=== PATIENT | male | born 1975 | race Caucasian/White ===

== ENCOUNTER 2020-11-07 17:40 | Emergency (ER) | payer BC ==
[2020-11-07 17:45] VITALS: BP 167/106; PULSE 110; RESP 18; TEMP 98.2
[2020-11-07] MEDS ORDERED: LIDOCAINE 1% INJ 10MG/ML (20 ML MDV) SQ STA (18:01)
[2020-11-07] MEDS ORDERED: DIPH,PERTUS(ACELL)TETVAC-LF 0.5 ML VIAL IM ONE (18:02)
--- NOTE | 2020-11-07 18:36 | XR ---
EXAMINATION TYPE: XR finger LT DATE OF EXAM: 11/07/2020 COMPARISON: NONE HISTORY: Laceration TECHNIQUE: 3 views FINDINGS: I see no fracture nor dislocation. There is some spurring at the first carpometacarpal join t. There is no evidence of a foreign body. IMPRESSION: Osteoarthritis at the base of the thumb. No fracture seen.
[2020-11-07] MEDS ORDERED: BACITRACIN OINT 1 EACH PACKET TOPICAL ONE (19:24)
[2020-11-07] MEDS ORDERED: CEPHALEXIN 500MG STARTER PACK 4 CAP BTL PO STA (19:33)
--- NOTE | 2020-11-07 19:36 | ED ---
General Adult HPI - General Chief complaint: Wound/Laceration Stated complaint: L Finger Lac Time Seen by Provider: 11/07/20 18:01 Source: patient, RN notes reviewed Mode of arrival: ambulatory Limitations: no limitations - History of Present Illness Initial comments: 45 year old male presents to the emergency department for a chief of laceration to left thumb. Patient has laceration noted over the IP joint of the left thumb. Patient states he was using a sharp and pocket knife to cut a branch and he cut his thumb instead. Denies any difficulty moving the thumb. Patient is unsure of his tetanus is up-to-date. Denies any other injuries. Denies any loss of sensation in the left thumb.Patient has no other complaints at this time including shortness of breath, chest pain, abdominal pain, nausea or vomiting, headache, or visual changes. - Related Data Home Medications Medication Instructions Recorded Confirmed Dextroamphetamine/Amphetamine 20 mg PO DAILY 04/26/16 04/26/16 [Adderall] Sertraline [Zoloft] 50 mg PO DAILY 04/26/16 04/26/16 Previous Rx's Medication Instructions Recorded Hydrocodone/Acetaminophen [[place] 1 each PO Q6HR PRN #20 tab 04/26/16 5-325] Ibuprofen [Motrin] 600 mg PO Q8HR PRN #20 tab 04/26/16 Cephalexin [Keflex] 500 mg PO Q6HR 7 Days #28 cap 11/07/20 Allergies Allergy/AdvReac Type Severity Reaction Status Date / Time No Known Allergies Allergy Verified 11/07/20 17:45 Review of Systems ROS Statement: Those systems with pertinent positive or pertinent negative responses have been documented in the HPI. ROS Other: All systems not noted in ROS Statement are negative. Past Medical History Past Medical History: Hypertension History of Any Multi-Drug Resistant Organisms: None Reported Past Surgical History: No Surgical Hx Reported Past Psychological History: No Psychological Hx Reported Smoking Status: Current every day smoker Past Alcohol Use History: Occasional Past Drug Use History: None Reported General Exam Limitations: no limitations General appearance: alert Head exam: Present: atraumatic, normocephalic, normal inspection Eye exam: Present: normal appearance, PERRL, EOMI. Absent: scleral icterus, conjunctival injection, periorbital swelling ENT exam: Present: normal exam, mucous membranes moist Neck exam: Present: normal inspection, full ROM. Absent: tenderness, meningismus, lymphadenopathy Respiratory exam: Present: normal lung sounds bilaterally. Absent: respiratory distress, wheezes, rales, rhonchi, stridor Cardiovascular Exam: Present: regular rate, normal rhythm, normal heart sounds. Absent: systolic murmur, diastolic murmur, rubs, gallop, clicks Extremities exam: Present: full ROM (Full range motion of the left thumb including the MCP and IP joints.), normal capillary refill (Capillary refill less than 2 seconds in left thumb. Radial pulses 2+ and left upper extremity), other (Patient does have a 3 cm laceration over the dorsum of the left IP joint involving tendon). Absent: tenderness, pedal edema, joint swelling, calf tenderness Course Vital Signs 11/07/20 17:42 Temperature 98.2 F Pulse Rate 110 H Respiratory 18 Rate Blood Pressure 167/106 O2 Sat by Pulse 97 Oximetry Procedures - Laceration Laceration #1 Consent Obtained: verbal consent Indication: laceration Site: hand Size (cm): 3 Description: linear Depth: involves tendon Anesthetic Used: lidocaine 1% Anesthesia Technique: local infiltration Amount (mls): 3 Pre-repair: wound explored, irrigated extensively (With saline pressure irrigation) Type of Sutures: nylon Size of Sutures: 4-0 Number of Sutures: 6 Technique: simple, interrupted Patient Tolerated Procedure: well, no complications Medical Decision Making - Medical Decision Making Wound was cleaned thoroughly. I do suspect tendon rupture. X-ray revealed no fracture seen. I did apply sutures and the wound is now approximated. Patient will be started on antibiotics. He will be given splint and orthopedic follow- up. He will return here for any worsening symptoms. [facility] is [facility], Dr. Lora is on-call. Discussed case with Dr Garcia Disposition Clinical Impression: Laceration, Tendon laceration Disposition: HOME SELF-CARE Condition: Good Instructions (If sedation given, give patient instructions): Care For Your Stitches (ED), Laceration (ED) Additional Instructions: Please take antibiotic as directed. Please use splint. Follow-up with orthopedics. Return to the emergency room for any worsening symptoms such as signs of infection. Prescriptions: Cephalexin [Keflex] 500 mg PO Q6HR 7 Days #28 cap Is patient prescribed a controlled substance at d/c from ED?: No Referrals: Levi Hightower MD [Primary Care Provider] - 1-2 days Marc Lora DO [Doctor of Osteopathic Medicine] - 1-2 days Time of Disposition: 19:34
== END 2020-11-07 19:49 | disposition home or self-care (01) ==
LOC: EC 17:40
DX: S56.322A Laceration of extensor or abductor muscles, fascia and tendons of left thumb at forearm level, initial encounter (principal); Z23 Encounter for immunization; F17.200 Nicotine dependence, unspecified, uncomplicated; Z79.899 Other long term (current) drug therapy; W26.0XXA Contact with knife, initial encounter
CPT/HCPCS: 73140; 90715; 99283; 90471; 12002; J2001

== ENCOUNTER 2022-05-30 21:32 | Emergency (ER) | payer BC ==
[2022-05-30 21:49] VITALS: BP 162/90; PULSE 89; RESP 19; TEMP 98.2
[2022-05-30 22:08] LABS: Basophils # (A) 0.1 k/uL (0-0.2); Basophils % (A) 1 %; Eosinophils # (A) 0.2 k/uL (0-0.7); Eosinophils % (A) 2 %; HCT 48.7 % (39.0-53.0); HGB 15.9 gm/dL (13.0-17.5); Lymphocytes # (A) 3.4 k/uL (1.0-4.8); Lymphocytes % (A) 27 %; MCH 31.3 pg (25.0-35.0); MCHC 32.6 g/dL (31.0-37.0); MCV 95.9 fL (80.0-100.0); Mean Platelet Volume 8.5; Monocytes # (A) 0.7 k/uL (0-1.0); Monocytes % (A) 5 %; Neutrophils # (A) 8.2 k/uL (1.3-7.7); Neutrophils % (A) 64 %; Platelet Count 286 k/uL (150-450); RBC 5.07 m/uL (4.30-5.90); RDW 12.2 % (11.5-15.5); WBC 12.8 k/uL (3.8-10.6)
[2022-05-30 22:54] LABS: Albumin 4.2 g/dL (3.5-5.0); Calcium 8.9 mg/dL (8.4-10.2); Potassium 3.9 mmol/L (3.5-5.1); Total Bilirubin 0.3 mg/dL (0.2-1.3); Total Protein 6.7 g/dL (6.3-8.2)
--- NOTE | 2022-05-30 23:04 | ED ---
Abdominal Pain HPI - General Chief Complaint: Abdominal Pain Stated Complaint: High BP,L sided abd pain Time Seen by Provider: 05/30/22 22:34 Source: patient Mode of arrival: ambulatory - History of Present Illness Initial Comments: this patient is a 47-year-old man with left upper quadrant pain that was initially noted approximately 2 weeks ago, is intermittent. He describes it as sharp, it has become more constant and is moderately severe. He does occasionally radiate towards the left groin. Area no associated symptoms. -: days(s) Location: LUQ Migration to: no migration Severity: moderate Quality: sharp Consistency: intermittent Improves With: nothing Worsens With: nothing Associated Symptoms: denies other symptoms - Related Data Home Medications Medication Instructions Recorded Confirmed Dextroamphetamine/Amphetamine 20 mg PO DAILY 04/26/16 04/26/16 [Adderall] Sertraline [Zoloft] 50 mg PO DAILY 04/26/16 04/26/16 Previous Rx's Medication Instructions Recorded Hydrocodone/Acetaminophen [[place] 1 each PO Q6HR PRN #20 tab 04/26/16 5-325] Ibuprofen [Motrin] 600 mg PO Q8HR PRN #20 tab 04/26/16 Cephalexin [Keflex] 500 mg PO Q6HR 7 Days #28 cap 11/07/20 HYDROcodone/APAP 5-325MG [[place] 1 tab PO Q4HR PRN 3 Days #18 tab 05/31/22 5-325] Ondansetron Odt [Zofran ODT] 4 mg PO Q8HR PRN #10 tab 05/31/22 Tamsulosin [Flomax] 0.4 mg PO DAILY #14 cap 05/31/22 Allergies Allergy/AdvReac Type Severity Reaction Status Date / Time No Known Allergies Allergy Verified 05/30/22 21:49 Review of Systems ROS Statement: Those systems with pertinent positive or pertinent negative responses have been documented in the HPI. ROS Other: All systems not noted in ROS Statement are negative. Constitutional: Denies: fever, chills Respiratory: Denies: cough, dyspnea Cardiovascular: Denies: chest pain, palpitations, edema Gastrointestinal: Reports: abdominal pain. Denies: nausea, vomiting, diarrhea, constipation Genitourinary: Denies: dysuria, frequency, hematuria, discharge, testicular pain, testicular mass Musculoskeletal: Denies: back pain Skin: Denies: rash Neurological: Denies: headache, weakness, numbness Past Medical History Past Medical History: Hypertension History of Any Multi-Drug Resistant Organisms: None Reported Past Surgical History: No Surgical Hx Reported Past Psychological History: No Psychological Hx Reported Smoking Status: Current every day smoker Past Alcohol Use History: Occasional Past Drug Use History: None Reported General Exam General appearance: alert, in no apparent distress Head exam: Present: atraumatic, normocephalic Eye exam: Present: normal appearance. Absent: scleral icterus, conjunctival injection Neck exam: Present: normal inspection Respiratory exam: Present: normal lung sounds bilaterally. Absent: respiratory distress, wheezes, rales, rhonchi, stridor Cardiovascular Exam: Present: regular rate, normal rhythm, normal heart sounds. Absent: systolic murmur, diastolic murmur, rubs, gallop GI/Abdominal exam: Present: soft. Absent: distended, tenderness, guarding, rebound, rigid, mass Extremities exam: Present: normal inspection, normal capillary refill. Absent: pedal edema, calf tenderness Back exam: Present: normal inspection. Absent: CVA tenderness (R), CVA tende rness (L) Neurological exam: Present: alert Skin exam: Present: warm, dry, intact, normal color. Absent: rash Course Vital Signs 05/30/22 21:46 Temperature 98.2 F Pulse Rate 89 Respiratory 19 Rate Blood Pressure 162/90 O2 Sat by Pulse 99 Oximetry Medical Decision Making - Lab Data Result diagrams: 05/30/22 21:57 05/30/22 21:57 Lab Results 05/30/22 05/30/22 05/30/22 Range/Units 21:57 21:57 21:57 WBC 12.8 H (3.8-10.6) k/uL RBC 5.07 (4.30-5.90) m/uL Hgb 15.9 (13.0-17.5) gm/dL Hct 48.7 (39.0-53.0) % MCV 95.9 (80.0-100.0) fL MCH 31.3 (25.0-35.0) pg MCHC 32.6 (31.0-37.0) g/dL RDW 12.2 (11.5-15.5) % Plt Count 286 (150-450) k/uL MPV 8.5 Neutrophils % 64 % Lymphocytes % 27 % Monocytes % 5 % Eosinophils % 2 % Basophils % 1 % Neutrophils # 8.2 H (1.3-7.7) k/uL Lymphocytes # 3.4 (1.0-4.8) k/uL Monocytes # 0.7 (0-1.0) k/uL Eosinophils # 0.2 (0-0.7) k/uL Basophils # 0.1 (0-0.2) k/uL Sodium 137 (137-145) mmol/L Potassium 3.9 (3.5-5.1) mmol/L Chloride 105 (98-107) mmol/L Carbon Dioxide 22 (22-30) mmol/L Anion Gap 10 mmol/L BUN 27 H (9-20) mg/dL Creatinine 1.53 H (0.66-1.25) mg/dL Est GFR (CKD-EPI)AfAm 61 (>60 ml/min/1.73 sqM) Est GFR (CKD-EPI)NonAf 53 (>60 ml/min/1.73 sqM) Glucose 142 H (74-99) mg/dL Calcium 8.9 (8.4-10.2) mg/dL Total Bilirubin 0.3 (0.2-1.3) mg/dL AST 24 (17-59) U/L ALT 21 (4-49) U/L Alkaline Phosphatase 104 (38-126) U/L Troponin I <0.012 (0.000-0.034) ng/mL Total Protein 6.7 (6.3-8.2) g/dL Albumin 4.2 (3.5-5.0) g/dL Amylase 58 (30-110) U/L Lipase 99 (23-300) U/L Urine Color Urine Appearance (Clear) Urine pH (5.0-8.0) Ur Specific [place] (1.001-1.035) Urine Protein (Negative) Urine Glucose (UA) (Negative) Urine Ketones (Negative) Urine Blood (Negative) Urine Nitrite (Negative) Urine Bilirubin (Negative) Urine Urobilinogen (<2.0) mg/dL Ur Leukocyte Esterase (Negative) Urine RBC (0-5) /hpf Urine WBC (0-5) /hpf Ur Squamous Epith Cells (0-4) /hpf Urine Mucus (None) /hpf 07/22/22 Range/Units 23:14 WBC (3.8-10.6) k/uL RBC (4.30-5.90) m/uL Hgb (13.0-17.5) gm/dL Hct (39.0-53.0) % MCV (80.0-100.0) fL MCH (25.0-35.0) pg MCHC (31.0-37.0) g/dL RDW (11.5-15.5) % Plt Count (150-450) k/uL MPV Neutrophils % % Lymphocytes % % Monocytes % % Eosinophils % % Basophils % % Neutrophils # (1.3-7.7) k/uL Lymphocytes # (1.0-4.8) k/uL Monocytes # (0-1.0) k/uL Eosinophils # (0-0.7) k/uL Basophils # (0-0.2) k/uL Sodium (137-145) mmol/L Potassium (3.5-5.1) mmol/L Chloride (98-107) mmol/L Carbon Dioxide (22-30) mmol/L Anion Gap mmol/L BUN (9-20) mg/dL Creatinine (0.66-1.25) mg/dL Est GFR (CKD-EPI)AfAm (>60 ml/min/1.73 sqM) Est GFR (CKD-EPI)NonAf (>60 ml/min/1.73 sqM) Glucose (74-99) mg/dL Calcium (8.4-10.2) mg/dL Total Bilirubin (0.2-1.3) mg/dL AST (17-59) U/L ALT (4-49) U/L Alkaline Phosphatase (38-126) U/L Troponin I (0.000-0.034) ng/mL Total Protein (6.3-8.2) g/dL Albumin (3.5-5.0) g/dL Amylase (30-110) U/L Lipase (23-300) U/L Urine Color Yellow Urine Appearance Clear (Clear) Urine pH 6.0 (5.0-8.0) Ur Specific [place] 1.027 (1.001-1.035) Urine Protein Negative (Negative) Urine Glucose (UA) Negative (Negative) Urine Ketones Negative (Negative) Urine Blood Trace H (Negative) Urine Nitrite Negative (Negative) Urine Bilirubin Negative (Negative) Urine Urobilinogen <2.0 (<2.0) mg/dL Ur Leukocyte Esterase Negative (Negative) Urine RBC 9 H (0-5) /hpf Urine WBC 1 (0-5) /hpf Ur Squamous Epith Cells <1 (0-4) /hpf Urine Mucus Rare H (None) /hpf - EKG Data -: EKG Interpreted by Me EKG shows normal: sinus rhythm, axis (normal), intervals (normal), QRS complexes (normal), ST-T waves (normal) Rate: normal (at 82 bpm) Disposition Clinical Impression: Kidney stone on left side Disposition: HOME SELF-CARE Condition: Good Instructions (If sedation given, give patient instructions): Kidney Stones (ED) Prescriptions: Tamsulosin [Flomax] 0.4 mg PO DAILY #14 cap HYDROcodone/APAP 5-325MG [[place] 5-325] 1 tab PO Q4HR PRN 3 Days #18 tab PRN Reason: Pain Ondansetron Odt [Zofran ODT] 4 mg PO Q8HR PRN #10 tab PRN Reason: Nausea Is patient prescribed a controlled substance at d/c from ED?: Yes When asked, does pt state using other controlled substances?: No If prescribed controlled substance>3 days was MAPS reviewed?: Prescribed <3 Days If opioid is for acute pain is fill amount 7 days or less?: Yes If Rx opioid, was Start Talking consent form obtained?: Yes Referrals: Levi Hightower MD [Primary Care Provider] - 1-2 days Tony Villalobos MD [STAFF PHYSICIAN] - 1-2 days
[2022-05-30 23:26] LABS: Appearance,Urine Clear (Clear); Bilirubin,Urine Negative (Negative); Blood,Urine Trace (Negative); Color,Urine Yellow; Glucose,Urine (UA) Negative (Negative); Ketones,Urine Negative (Negative); Leukocyte Esterase,Urine Negative (Negative); Mucus,Urine Rare /hpf; Nitrite,Urine Negative (Negative); Protein,Urine Negative (Negative); RBC,Urine 9 /hpf (0-5); Specific Gravity,Urine 1.027 (1.001-1.035); Squamous Epithelial Cell,Urine <1 /hpf (0-4); Urobilinogen,Urine <2.0 mg/dL (<2.0); WBC,Urine 1 /hpf (0-5)
[2022-05-31] MEDS ORDERED: MAG HYDROX/AL HYDROX/SIMETH 30 ML, HYOSCYAMINE ELIXIR 10 ML, LIDOCAINE VISCOUS 2% 10 ML PO STA ×3 (00:12)
[2022-05-31] MEDS ORDERED: KETOROLAC 15 MG/ML 1 ML VIAL IVP STA (00:13)
[2022-05-31] MEDS ORDERED: MORPHINE SULFATE 4 MG/ML SYRINGE IV STA (00:14)
[2022-05-31] MEDS ORDERED: HYDROmorphone 0.5 MG/0.5 ML SYRINGE IVP STA (00:59)
--- NOTE | 2022-05-31 01:29 | CT ---
EXAMINATION TYPE: CT abdomen pelvis wo con DATE OF EXAM: 05/31/2022 COMPARISON: 04/26/2016 HISTORY: LUQ PAIN X DAYS CT DLP: 3 views mGycm Automated exposure control for dose reduction was used. Images obtained from the diaphragm to the floor the pelvis with no contrast. There is mild subsegmental atelectasis right lung base. Heart size is normal. No pericardial effusion . No pleural effusion. Liver spleen and stomach pancreas and gallbladder appear intact. The bowel gas are not dilated. There is no adrenal mass. Kidneys of normal size. There are multiple bilateral renal calculi up to 4 mm. There is left-sided hydronephrosis and hydroureter. There is obstructing 5 mm calculus in the mid left ureter. The bladder distends smoothly. No inguinal hernia. No pelvic mass. No free fluid in the pelvis. There are some sigmoid diverticula. No diverticulitis. Appendix is posterior and appears nor mal. There is no mesenteric edema. No ascites or free air. No sign of a bowel obstruction. Lumbar vertebrae have normal alignment. No compression fracture. Bony pelvis is intact. The hip joint s are intact. Sacroiliac joints are intact. IMPRESSION: Obstructing calculus mid left ureter with left-sided hydronephrosis and hydroureter. Multiple bilater al renal calculi. Calculi are essentially all new compared to old exam. Normal appendix.
[2022-05-31] MEDS ORDERED: TAMSULOSIN 0.4 MG CAP.ER.24H PO STA (01:47)
== END 2022-05-31 01:56 | disposition home or self-care (01) ==
LOC: EC 21:32
DX: N13.2 Hydronephrosis with renal and ureteral calculous obstruction (principal); I10 Essential (primary) hypertension; F17.200 Nicotine dependence, unspecified, uncomplicated
CPT/HCPCS: 36415; 93005; 80053; 82150; 83690; 84484; 85025; 81001; 74176; 99284; 96374; 96375; J2270; J1885; J1170

== ENCOUNTER → 2022-06-05 | Outpatient (CLI) | payer BC ==
--- NOTE | 2022-06-05 15:17 | XR ---
EXAMINATION TYPE: XR KUB DATE OF EXAM: 06/05/2022 Comparison: CT 05/31/2022 Clinical History: 47-year-old male N20.1 Calculus of ureter Findings: Nonobstructive bowel gas pattern. Left-sided pelvic phleboliths. 6 mm calcification now along the exp ected region of the mid left ureter. Additional faint left renal calculi appear to measure 6 mm and 4 mm. Mild stool burden. Impression: A 6 mm mid left ureteral stone. Additional nonobstructive left renal calculi.
== END | disposition home or self-care (01) ==
LOC: RADXRMAIN 11:27
PROVIDERS: ATTEND Urology
DX: N20.2 Calculus of kidney with calculus of ureter (principal)
CPT/HCPCS: 74018

== ENCOUNTER → 2022-06-17 | Outpatient (CLI) | payer BC ==
--- NOTE | 2022-06-17 10:52 | XR ---
EXAMINATION TYPE: XR KUB DATE OF EXAM: 06/17/2022 HISTORY: Pain Comparison: 06/05/22 Single KUB is submitted for interpretation. Findings: Right renal calculi: None Visualized. Right ureteral calculi: None Visualized. Left renal calculi: 6.5 mm calculus lower pole left kidney. 3 mm calculus mid pole left kidney. Left ureteral calculi: Previously noted calculus left ureter is not visualized with certainty. Pelvic calcifications: None Visualized. Bowel gas pattern is unremarkable. No free air. No mass effects. IMPRESSION: 1. As above
== END | disposition home or self-care (01) ==
LOC: RADXRMAIN 10:32
PROVIDERS: ATTEND Urology
DX: N20.0 Calculus of kidney (principal)
CPT/HCPCS: 74018

== ENCOUNTER → 2022-07-21 | Outpatient (CLI) | payer BC ==
--- NOTE | 2022-07-21 08:40 | XR ---
EXAMINATION TYPE: XR KUB DATE OF EXAM: 07/21/2022 HISTORY: Pain Comparison: None.Single KUB is submitted for interpretation. Findings: Right renal calculi: None Visualized. Right ureteral calculi: None Visualized. Left renal calculi: Previously demonstrated calculi within the lower pole of the left kidney are not definitively visualized on today's exam. Left ureteral calculi: None Visualized. Pelvic calcifications: Stable bilateral pelvic phleboliths. Bowel gas pattern is unremarkable. No free air. No mass effects. IMPRESSION: No definitive renal or ureteral calculi identified.
== END ==
LOC: RADXRMAIN 08:15
PROVIDERS: ATTEND Urology
DX: N20.0 Calculus of kidney (principal)
CPT/HCPCS: 74018

== ENCOUNTER → 2023-01-30 | Day surgery (SDC) | payer BC ==
[~2023-01-30] MED LIST: ALPRAZolam 0.25 MG TAB PO PRN; ALPRAZolam 0.5 MG TAB PO PRN; ASPIRIN 325 MG TAB PO STA; ATORVASTATIN 80 MG TAB PO STA; HEPARIN SODIUM 1,000 UN/ML (10ML VL) IV ONE; HEPARIN SODIUM 1,000 UN/ML (10ML VL) ONE; HEPARIN SODIUM,PORCINE 10,000 UNIT in SODIUM CHLORIDE 0.9% 1,000 ML IRRIGATION PRN; HEPARIN SODIUM,PORCINE 2,500 UNIT in SODIUM CHLORIDE 0.9% 250 ML IRRIGATION PRN; IOPAMIDOL-370 125ML BTL INJ ONE; LIDOCAINE 1% INJ 10MG/ML (5 ML VIAL-PF) SQ ONE; MIDAZOLAM 2 MG/2 ML VIAL IV ONE; NITROGLYCERIN SL TABS 0.4 MG TAB SUBLINGUAL PRN; SODIUM CHLORIDE 0.9% 1,000 ML in EMPTY BAG 1 BAG IV SCH; VERAPAMIL 2.5 MG/ML 2 ML AMP ONE; VERAPAMIL SYRINGE (5 MG/10 ML) INTRAARTER ONE; fentaNYL (PF) 50 MCG/ML 2 ML AMP IV ONE; fentaNYL (PF) 50 MCG/ML 2 ML AMP ONE
[2023-01-30 10:33] VITALS: RESP 18; TEMP 97.5
[2023-01-30 10:47] LABS: Basophils % (A) 0 %; Eosinophils # (A) 0.2 k/uL (0-0.7); Eosinophils % (A) 1 %; HCT 50.2 % (39.0-53.0); HGB 16.7 gm/dL (13.0-17.5); Lymphocytes # (A) 2.9 k/uL (1.0-4.8); Lymphocytes % (A) 22 %; MCH 31.2 pg (25.0-35.0); MCHC 33.2 g/dL (31.0-37.0); Mean Platelet Volume 8.6; Monocytes # (A) 0.5 k/uL (0-1.0); Monocytes % (A) 4 %; Neutrophils # (A) 9.5 k/uL (1.3-7.7); Neutrophils % (A) 71 %; Platelet Count 264 k/uL (150-450); RBC 5.34 m/uL (4.30-5.90); RDW 12.4 % (11.5-15.5); WBC 13.3 k/uL (3.8-10.6)
[2023-01-30 10:55] LABS: African American GFR (CKD) >90 (>60 ml/min/1.73 sqM); Anion Gap 10 mmol/L; Blood Urea Nitrogen 20 mg/dL (9-20); Calcium 8.8 mg/dL (8.4-10.2); Carbon Dioxide 22 mmol/L (22-30); Chloride 105 mmol/L (98-107); Glucose 102 mg/dL (74-99); Non-African American GFR(CKD) >90 (>60 ml/min/1.73 sqM); Potassium 4.2 mmol/L (3.5-5.1); Sodium 137 mmol/L (137-145)
--- NOTE | 2023-01-30 12:56 | P.CARDCATH ---
Description of Procedure: PROCEDURES PERFORMED: Left heart catheterization, bilateral coronary angiography, left ventriculogram INDICATION: Chest pain worse with exertion concerning for unstable angina CONSENT:I have discussed the risks, benefits and alternative therapies for the above-mentioned procedure and for both sedation/analgesia as well as necessary blood product administration, if indicated, as they pertain to this patient. The patient has indicated understanding and acceptance of the risks and procedures discussed. PROCEDURE: After the risks, benefits and alternatives of the above mentioned procedure explained in detail with the patient, informed consent was obtained. Patient was taken to the catheterization lab and prepped and draped in usual fashion. 1% lidocaine was used to anesthetize the right radial artery. A 6- Indian sheath was placed in the right radial artery using modified Seldinger technique. Left coronary angiography was performed with a 5-Indian JL 3.5 catheter and right coronary angiography was performed with a 5-Indian JR5 catheter in various views. A 5-Indian FR5 catheter was inserted into the left ventricle and pressure measurements were obtained. A left ventriculogram was performed with a 6-Indian pigtail catheter in the ROMERO projection with power injection. The right radial sheath was removed and a TR band was placed with hemostasis achieved. The patient tolerated the procedure well. Patient was transported back to the post catheterization holding area in stable condition. Conscious Sedation: Patient was monitored under the direct supervision of vision of myself for conscious sedation using Versed and fentanyl for a total duration of 19 minutes HEMODYNAMICS: Aorta: 131/84 LV: 131/10, LVEDP 20 SELECTIVE CORONARY ARTERIOGRAPHY: LEFT MAIN: The left main is a large caliber vessel which bifurcates into the LAD and circumflex. There is no significant stenosis. LEFT ANTERIOR DESCENDING CORONARY ARTERY: LAD is a large caliber vessel which wraps around to the apex. There is no significant stenosis. LEFT CIRCUMFLEX CORONARY ARTERY: Left circumflex is a small to moderate caliber vessel without significant stenosis. RIGHT CORONARY ARTERY: The right coronary artery is a large caliber vessel which gives off a PDA and PLV branch and is the dominant vessel. There is mild 10-20% mid RCA stenosis and otherwise normal. FINAL IMPRESSION: 1. Relatively normal coronary arteries as described above other than 10-20% mid RCA stenosis 2. Mildly elevated left sided filling pressures 3. Left ventricular ejection fraction 60% PLAN: 1. Aggressive risk factor modification per most recent ACC/AHA guidelines. 2. Follow-up in the office in 1-2 weeks.
[2023-01-30 15:21] VITALS: BP 133/63; PULSE 68
== END ==
LOC: CATHCVL 10:09
PROVIDERS: ATTEND Internal Medicine
DX: I25.10 Atherosclerotic heart disease of native coronary artery without angina pectoris (principal)
CPT/HCPCS: 93458; 80048; 85025; C1769; C1894; J2250; J2001; J3010; J1644; Q9967

== ENCOUNTER → 2023-06-17 | Outpatient (CLI) | payer BC ==
--- NOTE | 2023-06-17 09:11 | XR ---
EXAMINATION TYPE: XR KUB DATE OF EXAM: 06/17/2023 HISTORY: Pain Comparison: CT 05/31/2022. Single KUB is submitted for interpretation. Findings: Right renal calculi: 5 mm calculus lower pole right kidney. Right ureteral calculi: There is a calculus adjacent to the urinary bladder on the right could reflec t a phlebolith however distal ureteral calculus measuring 3.4 mm is difficult to exclude. Left renal calculi: None Visualized. Left ureteral calculi: None Visualized. Pelvic calcifications: Phlebolith within the left hemipelvis. There are also calcifications to the r ight of midline within the pelvic basin could reflect additional phlebolith formation versus calculi within the urinary bladder. Bowel gas pattern is unremarkable. No free air. No mass effects. IMPRESSION: 1. As above
== END | disposition home or self-care (01) ==
LOC: RADXRMAIN 08:25
PROVIDERS: ATTEND Urology
DX: N20.2 Calculus of kidney with calculus of ureter (principal); I87.8 Other specified disorders of veins
CPT/HCPCS: 74018

== ENCOUNTER → 2023-06-24 | Outpatient (CLI) | payer BC ==
--- NOTE | 2023-06-24 14:47 | CT ---
EXAMINATION TYPE: CT abdomen pelvis wo con DATE OF EXAM: 06/24/2023 COMPARISON: 05/31/2022 HISTORY: RT flank pain. Hx renal stones CT DLP: 1044.10 mGycm Examination of the solid and hollow viscera is limited given the lack of contrast. FINDINGS: LUNG BASES: No evidence for nodule. No evidence for infiltrate. LIVER/GB: The gallbladder is unremarkable. No space-occupying hepatic lesion. PANCREAS: No pancreatic mass identified. No inflammatory process seen. SPLEEN: No evidence for splenomegaly. No intrasplenic lesions seen. ADRENALS: No adrenal nodules identified. No evidence for thickening. KIDNEYS: There is a 5 mm calculus lower pole right kidney. No additional right-sided renal calculi se en. 2.5 mm calculus lower pole left kidney is noted. Hypoattenuating lesion which is exophytic is see n within the lower pole of the left kidney measures 2.1 cm and could reflect a cyst although the lack of contrast limits evaluation. No additional renal lesions seen. No evidence for obstructive uropath y. There is a 4 mm calculus noted to reside dependently within the urinary bladder which likely refle cts a recently passed calculus. BOWEL: Appendix has a normal appearance. No evidence of bowel obstruction. No inflammatory process. Lymph nodes: No evidence for adenopathy greater than 1 cm. Abdominal aorta: Atheromatous changes seen. No evidence for aneurysm. Genital organs: No significant abnormality. Other: No significant abnormality. IMPRESSION: 1. Nonobstructing renal calculi. 2. Dependent calculus within the urinary bladder likely reflects recently passed calculus. No obstruc tive uropathy seen at this time. 3. Nonspecific exophytic lesion lower pole left kidney.
== END | disposition home or self-care (01) ==
LOC: RADCTMAIN 13:20
PROVIDERS: ATTEND Urology
DX: N20.0 Calculus of kidney (principal); N21.0 Calculus in bladder; N28.89 Other specified disorders of kidney and ureter
CPT/HCPCS: 74176

== ENCOUNTER → 2024-04-18 | Outpatient (CLI) | payer BC ==
--- NOTE | 2024-04-18 10:26 | XR ---
EXAMINATION TYPE: XR KUB DATE OF EXAM: 04/18/2024 HISTORY: Pain Comparison: None.Single KUB is submitted for interpretation. Findings: Right renal calculi: 5 mm calculus overlies the lower pole of the right kidney. Right ureteral calculi: None Visualized. Left renal calculi: None Visualized. Left ureteral calculi: None Visualized. Pelvic calcifications: Stable phleboliths seen within the pelvic basin. Bowel gas pattern is unremarkable. No free air. No mass effects. IMPRESSION: 1. 5 mm calculus overlies the lower pole of the right kidney.
== END | disposition home or self-care (01) ==
LOC: RADXRMAIN 09:01
PROVIDERS: ATTEND Urology
DX: N20.0 Calculus of kidney (principal)
CPT/HCPCS: 74018

== ENCOUNTER → 2024-04-21 | Outpatient (CLI) | payer BC ==
--- NOTE | 2024-04-21 11:18 | CT ---
EXAMINATION TYPE: CT abdomen pelvis wo con DATE OF EXAM: 04/21/2024 COMPARISON: 06/24/2023 HISTORY: left flank pain CT DLP: 946.4 mGycm Examination of the solid and hollow viscera is limited given the lack of contrast. FINDINGS: LUNG BASES: No evidence for nodule. No evidence for infiltrate. LIVER/GB: The gallbladder is unremarkable. No space-occupying hepatic lesion. PANCREAS: No pancreatic mass identified. No inflammatory process seen. SPLEEN: No evidence for splenomegaly. No intrasplenic lesions seen. ADRENALS: No adrenal nodules identified. No evidence for thickening. KIDNEYS: No evidence for renal mass. Nonobstructing 4 mm calculus lower pole right kidney and nonobst ructing 2.5 mm calculus lower pole of left kidney. No hydronephrosis. BOWEL: Appendix has a normal appearance. No evidence of bowel obstruction. No inflammatory process. Lymph nodes: No evidence for adenopathy greater than 1 cm. Abdominal aorta: Atheromatous changes seen. No evidence for aneurysm. Genital organs: No significant abnormality. Other: No significant abnormality. IMPRESSION: NONOBSTRUCTING NEPHROLITHIASIS
== END | disposition home or self-care (01) ==
LOC: RADCTMAIN 09:28
PROVIDERS: ATTEND Urology
DX: N20.1 Calculus of ureter (principal)
CPT/HCPCS: 74176

== ENCOUNTER → 2024-09-09 | Outpatient (CLI) | payer BC | END | disposition home or self-care (01) | LOC: LABWHC1 14:16 | PROVIDERS: ATTEND Family Medicine | DX: Z53.9 Procedure and treatment not carried out, unspecified reason (principal) ==

== ENCOUNTER → 2024-09-09 | Outpatient (CLI) | payer BC ==
[2024-09-10 02:31] LABS: Basophils # (A) 0.06 X 10*3/uL (0.00-0.10); Basophils % (A) 0.5 %; Eosinophils # (A) 0.08 X 10*3/uL (0.04-0.35); Eosinophils % (A) 0.7 %; HCT 50.1 % (39.6-50.0); HGB 16.6 g/dL (13.0-17.0); Lymphocytes % (A) 33.8 %; MCH 31.4 pg (27.0-32.0); MCHC 33.1 g/dL (32.0-37.0); MCV 94.9 FL (80.0-97.0); Mean Platelet Volume 10.9 FL (9.5-12.2); Monocytes # (A) 0.63 X 10*3/uL (0.20-1.00); Monocytes % (A) 5.7 %; NRBC Per 100 WBC 0 X 10*3/uL (0.00-0.01); Neutrophils # (A) 6.44 X 10*3/uL (1.80-7.70); Neutrophils % (A) 58.8 %; Platelet Count 277 X 10*3/uL (140-440); RBC 5.28 X 10*6/uL (4.40-5.60); RDW 12.3 % (11.5-14.5); WBC 10.96 X 10*3/uL (4.50-10.00)
[2024-09-10 03:38] LABS: % Iron Saturation 24.45 (15.00-50.00); ALT 29 U/L (10-49); AST 19 U/L (14-35); Albumin 4.5 g/dL (3.8-4.9); Albumin/Globulin Ratio 1.88 Ratio (1.60-3.17); Alkaline Phosphatase 99 U/L (41-126); Amylase 42 U/L (23-121); Blood Urea Nitrogen 15.6 mg/dL (9.0-27.0); C Reactive Protein <0.30 mg/dL (0.00-0.80); Calcium 9.5 mg/dL (8.7-10.3); Carbon Dioxide 21.1 mmol/L (21.6-31.8); Chloride 102 mmol/L (96-109); Globulin 2.4 g/dL (1.6-3.3); Glucose 89 mg/dL (70-110); Iron 100 UG/DL (65-175); Lipase 22 U/L (14-60); Potassium 4.3 mmol/L (3.5-5.5); Sodium 138 mmol/L (135-145); T4, Free (Free Thyroxine) 1.13 ng/dL (0.80-1.80); Total Bilirubin 0.2 mg/dL (0.3-1.2); Total Iron Binding Capacity 409 UG/DL (228-460); Total Protein 6.9 g/dL (6.2-8.2)
[2024-09-10 04:06] LABS: Erythrocyte Sedimentation Rate 12 mm/Hr (0-15)
[2024-09-10 05:57] LABS: Gliadin AB IgA, Deaminated Negative (Negative); Gliadin AB IgA, Unit 2.5 U/mL; Gliadin AB IgG, Deaminated Negative (Negative); Gliadin AB IgG, Unit <0.4 U/mL
[2024-09-15 19:38] LABS: Albumin, LC/MS/MS 4.4 g/dL (3.6-5.1); Testosterone, Free, LC/MS/MS 44.5 pg/mL (46.0-224.0)
== END | disposition home or self-care (01) ==
LOC: LABWHC1 14:12
PROVIDERS: ATTEND Dermatology MOHS-Micrographic Surgery
DX: S30.860A Insect bite (nonvenomous) of lower back and pelvis, initial encounter (principal); W57.XXXS Bitten or stung by nonvenomous insect and other nonvenomous arthropods, sequela; R53.83 Other fatigue; R10.9 Unspecified abdominal pain
CPT/HCPCS: 36415; 80053; 82040; 82150; 82306; 82607; 82671; 82728; 82746; 83516; 83540; 83550; 83690; 84270; 84403; 84439; 84443; 85025; 85652; 86140; 86618